=== PATIENT | female | born 1990 | race Caucasian/White ===

== ENCOUNTER → 2024-03-17 09:22 | Outpatient (CLI) | payer OTHER ==
[~2024-03-17 09:22] MED LIST: PRILOSEC10 MG PO; PROZAC20 MG; WELLBUTRIN XL150 M1
== END | disposition home or self-care (01) ==
LOC: PRENATAL 09:22
PROVIDERS: ATTEND Obstetrics & Gynecology Maternal & Fetal Medicine
DX: O35.9XX0 Maternal care for (suspected) fetal abnormality and damage, unspecified, not applicable or unspecified (principal); O98.512 Other viral diseases complicating pregnancy, second trimester; O44.02 Complete placenta previa NOS or without hemorrhage, second trimester; O09.522 Supervision of elderly multigravida, second trimester; O34.12 Maternal care for benign tumor of corpus uteri, second trimester; Z3A.20 20 weeks gestation of pregnancy; A92.5 Zika virus disease

== ENCOUNTER 2024-05-19 08:01 | Outpatient (CLI) | payer OTHER | END 2024-05-19 08:02 | disposition home or self-care (01) | LOC: PRENATAL 08:01 | PROVIDERS: ATTEND Obstetrics & Gynecology Maternal & Fetal Medicine | DX: O35.3XX0 Maternal care for (suspected) damage to fetus from viral disease in mother, not applicable or unspecified (principal); O44.00 Complete placenta previa NOS or without hemorrhage, unspecified trimester; O10.019 Pre-existing essential hypertension complicating pregnancy, unspecified trimester; O09.519 Supervision of elderly primigravida, unspecified trimester; Z3A.20 20 weeks gestation of pregnancy ==

== ENCOUNTER → 2024-07-01 11:13 | Outpatient (CLI) | payer OTHER ==
[~2024-07-01 11:13] MED LIST changes: +LABETALOL HCL200 MG PO
== END | disposition home or self-care (01) ==
LOC: PRENATAL 11:13
PROVIDERS: ATTEND Obstetrics & Gynecology Maternal & Fetal Medicine
DX: O26.849 Uterine size-date discrepancy, unspecified trimester (principal); O10.019 Pre-existing essential hypertension complicating pregnancy, unspecified trimester; O09.519 Supervision of elderly primigravida, unspecified trimester; Z3A.26 26 weeks gestation of pregnancy

== ENCOUNTER 2024-08-06 12:08 | Outpatient (CLI) | payer OTHER | END 2024-08-06 12:09 | disposition home or self-care (01) | LOC: PRENATAL 12:08 | PROVIDERS: ATTEND Obstetrics & Gynecology Maternal & Fetal Medicine | DX: O26.849 Uterine size-date discrepancy, unspecified trimester (principal); O36.8199 Decreased fetal movements, unspecified trimester, other fetus; O99.019 Anemia complicating pregnancy, unspecified trimester; O10.019 Pre-existing essential hypertension complicating pregnancy, unspecified trimester; Z3A.32 32 weeks gestation of pregnancy ==

== ENCOUNTER 2024-09-02 10:09 | Outpatient (CLI) | payer OTHER | END 2024-09-02 10:10 | disposition home or self-care (01) | LOC: PRENATAL 10:09 | PROVIDERS: ATTEND Obstetrics & Gynecology Maternal & Fetal Medicine | DX: O26.849 Uterine size-date discrepancy, unspecified trimester (principal); O36.8199 Decreased fetal movements, unspecified trimester, other fetus; O10.019 Pre-existing essential hypertension complicating pregnancy, unspecified trimester; O09.519 Supervision of elderly primigravida, unspecified trimester; Z3A.35 35 weeks gestation of pregnancy ==